=== PATIENT | female | born 1990 | race Caucasian/White ===

== ENCOUNTER 2019-05-12 12:57 | Outpatient (REF) | payer OTHER, SELFPAY ==
[2019-05-12 19:56] LABS: Abs Immature Grans 0.02 k/cumm (0.0-0.09); Absolute Basophil Count 0.02 k/cumm (0.0-0.2); Absolute Lymphocyte Count 2.09 k/cumm (1.2-3.4); Absolute Monocyte Count 0.71 k/cumm (0.11-0.7); Absolute Neutrophil Count 5.53 k/cumm (1.2-6.7); Basophils % 0.2; Eosinophils % 1.2; HCT 44.7 % (36.0-46.0); HGB 15.1 g/dL (12.0-15.5); Immature Grans % 0.2; Lymphocytes % 24.7; Mean Corp. HGB Concentration 33.8 g/dL (32.0-36.0); Mean Corpuscular Hemoglobin 31.8 pg (27.0-33.0); Mean Corpuscular Volume 94.1 fL (80-95); Mean Platelet Volume 10.6 fL (8.0-11.0); Monocytes % 8.4; Neutrophils % 65.3; Platelet Count 274 x1000/uL (130-400); RBC 4.75 m/cumm (4.00-5.20); RBC Distribution Width 12.5 % (11.7-14.6); White Blood Cell Count 8.47 k/cumm (4.4-10.8)
[2019-05-12 20:08] LABS: Iron 183 ug/dL (50-175); Total Iron Binding Capacity 325 ug/dL (250-450); Transferrin Sat 56 % (15-50)
[2019-05-12 20:46] LABS: Anion Gap 11.3 mmol/L (3-11); BUN 13 mg/dL (7-18); CO2 25.7 mmol/L (21.0-32.0); Calcium 9.4 mg/dL (8.5-10.1); Chloride 103 mmol/L (98-107); Folate 13.1 ng/mL (8.6-20.0); Glucose 86 mg/dL (70-100); Magnesium 2.1 mg/dL (1.8-2.4); Potassium 3.8 mmol/L (3.5-5.1); Sodium 140 mmol/L (136-145); Vitamin B12 416 pg/mL (193-986)
[2019-05-12 20:50] LABS: ESR 10 mm/hr (0-20)
[2019-05-12 21:11] LABS: Creatine Kinase 71 U/L (26-192)
[2019-05-14 17:06] LABS: CRP, High Sensitivity 1.68 mg/L
== END 2019-05-12 13:17 ==
LOC: NCHCN 12:57
PROVIDERS: PCP Nurse Practitioner Family; Visit Provider Nurse Practitioner Family
DX: R68.89 Other general symptoms and signs (principal)
CPT/HCPCS: 80048; 82550; 85652; 86141; 82607; 82746; 83540; 83550; 83735; 84443; 85025

== ENCOUNTER 2019-10-20 09:24 | Outpatient (REF) | payer MEDICAID, SELFPAY ==
[2019-10-23 13:35] LABS: Chlamydia Result Negative (Negative); GC Result Negative (Negative)
== END 2019-10-20 09:44 ==
LOC: NCHCN 09:24
PROVIDERS: PCP Nurse Practitioner Family; Visit Provider Physician Assistant
DX: R10.9 Unspecified abdominal pain (principal); Z11.3 Encounter for screening for infections with a predominantly sexual mode of transmission
CPT/HCPCS: 87491; 87591

== ENCOUNTER 2020-07-03 09:04 | Outpatient (REF) | payer MEDICAID, SELFPAY ==
[2020-07-03 20:59] LABS: ALT 29 U/L (14-59); AST 24 U/L (15-37); Albumin 4.6 g/dL (3.4-5.0); Alkaline Phosphatase 46 U/L (46-116); Amylase 56 U/L (25-115); Anion Gap 9.4 mmol/L (3-11); BUN 16 mg/dL (7-18); Bilirubin, Direct 0.11 mg/dL (0.00-0.20); Bilirubin, Total 0.5 mg/dL (0.2-1.0); CO2 25.6 mmol/L (21.0-32.0); CREATININE 0.82 mg/dL (0.55-1.02); Calcium 9.5 mg/dL (8.5-10.1); Chloride 105 mmol/L (98-107); FREE T4 1.08 ng/dL (0.76-1.46); Glucose 79 mg/dL (74-106); Lipase 112 U/L (73-393); Potassium 4.3 mmol/L (3.5-5.1); Sodium 140 mmol/L (136-145); TSH 1.74 uIU/mL (0.36-3.74); Total Protein 8.2 g/dL (6.4-8.2)
[2020-07-04 18:48] LABS: T3, Total 137 ng/dL (97-169)
[2020-07-04 19:20] LABS: Thyroglobulin Antibody <15 U/mL (<=60); Thyroperoxidase Antibody <28 U/mL (<=60)
== END 2020-07-03 09:24 ==
LOC: NCHCN 09:04
PROVIDERS: PCP Nurse Practitioner Family; Visit Provider Nurse Practitioner Family
DX: E04.1 Nontoxic single thyroid nodule (principal); R10.9 Unspecified abdominal pain
CPT/HCPCS: 80048; 80076; 83690; 86376; 82150; 84144; 84439; 84443; 84480

== ENCOUNTER 2023-07-20 20:18 | Outpatient (REF) | payer BC, SELFPAY | END 2023-07-20 20:19 | disposition home or self-care (01) | LOC: NCHCN 20:18 | PROVIDERS: PCP Nurse Practitioner Family; Visit Provider Nurse Practitioner Family | DX: J02.9 Acute pharyngitis, unspecified (principal) | CPT/HCPCS: 87081 ==